=== PATIENT | female | born 1980 | race American Indian/Alaskan Native ===

== ENCOUNTER 2017-10-21 19:46 | Inpatient (IN) | payer SELFPAY ==
[2017-10-21] MEDS ORDERED: Nalbuphine 20 MG/1 ML Amp IVPUSH PRN (20:09)
[2017-10-21] MEDS ORDERED: Acetaminophen 325 MG Tab PO PRN (20:09)
[2017-10-21] MEDS ORDERED: Sodium Chloride 0.9% 10 ML Syringe FLUSH PRN (20:09)
[2017-10-21] MEDS ORDERED: Ondansetron 4 MG/2 ML SDV IVPUSH PRN ×2 (20:09→20:29)
[2017-10-21] MEDS ORDERED: Oxytocin/Lactated Ringers 10 UNIT/1,000 ML BAG IV SCH (20:15)
[2017-10-21] MEDS ORDERED: ePHEDrine 50 MG/ML SDV IVPUSH PRN (20:29)
[2017-10-21] MEDS ORDERED: fentaNYL 100 MCG/2 ML SDV EPIDUR PRN (20:29)
[2017-10-21] MEDS ORDERED: Bupivacaine/fentaNYL/NS 100 ML Bag EPIDUR SCH (20:30)
--- NOTE | 2017-10-21 20:45 | PCM.PREANE ---
Preanesthetic Assessment - Anesthesia/Transfusion/Family Hx Anesthesia History: Prior Anesthesia Without Reaction Family History of Anesthesia Reaction: No Transfusion History: Prior Transfusion Without Reaction Intubation History: Unknown - Review of Systems General: No Symptoms Pulmonary: No Symptoms Cardiovascular: No Symptoms Gastrointestinal: No Symptoms Neurological: No Symptoms Other: Reports: None - Physical Assessment NPO Status Date: 10/21/17 NPO Status Time: 16:00 Pulse: 77 O2 Sat by Pulse Oximetry: 99 Respiratory Rate: 16 Blood Pressure: 138/62 Temperature: 36.9 C Height: 1.65 m Weight: 79.379 kg ASA Class: 2 Mental Status: Alert & Oriented x3 Airway Class: Mallampati = 2 Dentition: Reports: Normal Dentition, Caries Thyro-Mental Finger Breadths: 3 Mouth Opening Finger Breadths: 3 ROM/Head Extension: Full Lungs: Clear to Auscultation, Normal Respiratory Effort Cardiovascular: Regular Rate, Regular Rhythm, No Murmurs - Lab Values: Laboratory Last Values WBC 8.29 K/mm3 (3.98-10.04) 10/21/17 20:24 RBC 4.39 M/mm3 (3.98-5.22) 10/21/17 20:24 Hgb 11.5 gm/L (11.2-15.7) 10/21/17 20:24 Hct 35.8 % (34.1-44.9) 10/21/17 20:24 MCV 81.5 fl (79.4-94.8) 10/21/17 20:24 MCH 26.2 pg (25.6-32.2) 10/21/17 20:24 MCHC 32.1 g/dl (32.2-35.5) L 10/21/17 20:24 RDW Std Deviation 54.9 fL (36.4-46.3) H 10/21/17 20:24 Plt Count 226 K/mm3 (182-369) 10/21/17 20:24 MPV 11.1 fl (9.4-12.3) 10/21/17 20:24 Above labs reviewed and noted and within acceptable ranges to proceed with epidural. - Allergies Allergies/Adverse Reactions: Allergies Allergy/AdvReac Type Severity Reaction Status Date / Time No Known Allergies Allergy Verified 10/21/17 20:40 - Anesthesia Plan Pre-Op Medication Ordered: None - Acknowledgements Anesthesia Type Planned: Epidural Pt an Appropriate Candidate for the Planned Anesthesia: Yes Alternatives and Risks of Anesthesia Discussed w Pt/Guardian: Yes Pt/Guardian Understands and Agrees with Anesthesia Plan: Yes PreAnesthesia Questionnaire - CURRENT (IN HOUSE) MEDS Current Meds: Current Medications Acetaminophen (Tylenol) 650 mg PO Q6H PRN PRN Reason: Pain (Mild 1-3) and fever Ephedrine Sulfate (Ephedrine Sulfate) 5 mg IVPUSH ASDIRECTED PRN PRN Reason: Hypotension Fentanyl (Sublimaze) 100 mcg EPIDUR Q3H PRN PRN Reason: Pain Fentanyl/Bupivacaine HCl (Fentanyl/Bupivacaine/Ns 2 Mcg-0.125% 100 Ml) 100 ml EPIDUR ASDIRECTED [facility] Lactated Ringer's (Ringers, Lactated) 1,000 mls @ 100 mls/hr IV ASDIRECTED [facility] Oxytocin/Lactated Ringer's (Pitocin In Lr 10 Units/1,000 Ml) 10 unit in 1,000 mls @ 100 mls/hr IV .CONTINUOUS [facility] Nalbuphine HCl (Nubain) 10 mg IVPUSH Q2H PRN PRN Reason: Pain (moderate 4-6) Ondansetron HCl (Zofran) 4 mg IVPUSH Q4H PRN PRN Reason: Nausea/Vomiting Ondansetron HCl (Zofran) 4 mg IVPUSH ONETIME PRN PRN Reason: Nausea/Vomiting Sodium Chloride (Saline Flush) 10 ml FLUSH ASDIRECTED PRN PRN Reason: Keep Vein Open
[2017-10-21] MEDS: Lactated Ringers 1,000 ML IV SCH ×3 (21:26→22:01)
--- NOTE | 2017-10-21 21:44 | PCM.LDHP ---
L&D History of Present Illness - General Date of Service: 10/21/17 Admit Problem/Dx: Patient Status Order with Admit Dx/Problem 10/21/17 20:09 Patient Status [ADT] Routine Admission Diagnosis/Problem Admission Diagnosis/Problem Spontaneous rupture of amniotic membranes Source of Information: Patient, Family () History Limitations: Reports: Language Barrier (Speaks Polish only, speaks some Polish) - History of Present Illness Introduction:: 37 year old at 38 weeks 4 days by LMP consistent with 19 week ultrasound. She reports that her water broke at approximately 7 PM. Reports that she had clear fluid with her water breaking. She reports that when she arrived to the hospital she started to have more frequent contractions are about every 10 minutes apart. Since that time they have gotten closer together to every 2-3 minutes. They were extremely painful and she was rating them at 6/ 10. She reports good movement. Timing/Duration: Reports: sudden onset, waxing/waning Location, : Reports: Abdomen, Lower back, Pelvic Quality: Reports: Pressure, Throbbing Severity: Moderate Pain Score: 6 Improves with: Reports: None Worsens with: Reports: None Associated Symptoms: Reports: vaginal fluid (Clear), moderate amount. Denies: vaginal bleeding, vaginal discharge Present Illness Comments:: Aury Jones is a 37-year-old 003 at 38 weeks 4 days by LMP consistent with 19 week ultrasound. She has had somewhat limited care with Dr. Pena having not been seen from 20 weeks gestational age until 34 weeks gestational age [place]. She was not seeing any other providers during that time. Her labs show O- blood type with negative antibody screen. She received RhoGAM on 09/20/2017. Her hematocrit was 39.9 and hemoglobin of 13.3 on 04/09/2017. Her platelets were 231 at that time. She is rubella nonimmune. She had a negative hepatitis B surface antigen, negative RPR and negative HIV. She had negative chlamydia and gonorrhea screening. She had a normal Pap smear with negative culture testing. Her heart rate screening was within normal limits. Her 1 hour glucose test was elevated at 157. Her 3 hour glucose test showed values of fasting 88, 1 hour 189, two-hour 141 and 3 hour 124. She is GBS negative. Her has been complicated by history of macrosomia, clavicular fracture will in the setting of shoulder dystocia of a 10 pound baby, Rh- blood status with receiving RhoGAM at 34 weeks, advanced maternal age with normal harmony screen and rubella nonimmune - Related Data Allergies/Adverse Reactions: Allergies Allergy/AdvReac Type Severity Reaction Status Date / Time No Known Allergies Allergy Verified 10/21/17 20:40 Past Medical History : 4 Para: 3 Social & Family History - Tobacco Use Smoking Status *Q: Never Smoker Tobacco Use Within Last Twelve Months: No - Alcohol Use Alcohol Use History: No - Recreational Drug Use Recreational Drug Use: No Drug Use in Last 12 Months: No - Sexual History Sexual History: Reports: Single Partner - Living Situation & Occupation Living situation: Reports: H&P Review of Systems - Review of Systems: Review Of Systems: See Below General: Denies: Fever, Chills, Malaise HEENT: Denies: Sinus Congestion, Sore Throat, Visual Changes Pulmonary: Denies: Shortness of Breath, Wheezing Cardiovascular: Denies: Chest Pain, Palpitations Gastrointestinal: Denies: Abdominal Pain, Constipation, Diarrhea, Nausea, Vomiting Genitourinary: Denies: Dysuria, Frequency, Burning, Pain Musculoskeletal: Reports: Back Pain Psychiatric: Denies: Depression, Anxiety Neurological: Reports: Headache (Menstrual migraines) Hematologic/Lymphatic: Denies: Anemia L&D Exam - Exam Exam: See Below - Vital Signs Vital Signs: Last Vital Signs Temp 36.9 C 10/21/17 20:50 Pulse 77 10/21/17 20:50 Resp 16 10/21/17 20:50 BP 138/62 10/21/17 20:50 Pulse Ox 99 10/21/17 20:50 Weight: 79.379 kg - OB Specific Contraction Duration (sec): 60 Contraction Frequency (min): 2-3 Contraction Intensity: Moderate to Strong Movement: Active Heart Tones: Present Heart Tones per Min: 130 (no accelerations, variable decelerations with contractions) Heart Rate (FHR) Variability: Moderate (6-25 bmp) Presentation: Vertex (By vaginal exam) - Cruz Score Cruz Score Cervix Position: Anterior Cruz Score Consistency: Soft Cruz Score Effacement: >80% Cruz Score Dilation: > 5 cm Cruz Score 's Station: -2 Cruz Score Total: 11 - Exam Quality Assessment: Other (Epidural in place) General: Alert, Oriented HEENT: Conjunctiva Clear, EOMI Neck: Supple, Trachea Midline Lungs: Clear to Auscultation, Normal Respiratory Effort Cardiovascular: Regular Rate, Regular Rhythm GI/Abdominal Exam: Soft, Non-Tender, Other (Gravid). No: Guarding, Rebound Genitourinary: Normal external exam Back Exam: Normal Inspection Extremities: Normal Inspection, No Pedal Edema Skin: Warm, Dry, Intact Psychiatric: Alert, Normal Affect, Normal Mood - Patient Data Lab Results Last 24 hrs: Laboratory Results - last 24 hr 10/21/17 Range/Units 20:24 WBC 8.29 (3.98-10.04) K/mm3 RBC 4.39 (3.98-5.22) M/mm3 Hgb 11.5 (11.2-15.7) gm/L Hct 35.8 (34.1-44.9) % MCV 81.5 (79.4-94.8) fl MCH 26.2 (25.6-32.2) pg MCHC 32.1 L (32.2-35.5) g/dl RDW Std Deviation 54.9 H (36.4-46.3) fL Plt Count 226 (182-369) K/mm3 MPV 11.1 (9.4-12.3) fl Result Diagrams: 10/21/17 20:24 - Problem List (1) 38 weeks gestation of SNOMED Code(s): 36591496 ICD Code: Z3A.38 - 38 WEEKS GESTATION OF Status: Acute Current Visit: Yes (2) History of macrosomia in in prior , currently SNOMED Code(s): 437476922 ICD Code: O09.299 - SUPRVSN OF PREG W POOR REPRODCTV OR OBSTET HISTORY, UNSP TRI Status: Acute Current Visit: Yes (3) Language barrier SNOMED Code(s): 109241599 ICD Code: Z78.9 - OTHER SPECIFIED HEALTH STATUS Status: Acute Current Visit: Yes (4) Rubella non-immune status, antepartum SNOMED Code(s): 669618747 ICD Code: O99.89 - OTH DISEASES AND CONDITIONS COMPL PREG/CHLDBRTH; Z28.3 - UNDERIMMUNIZATION STATUS Status: Acute Current Visit: Yes (5) Advanced maternal age (AMA) in SNOMED Code(s): 346349603 ICD Code: [id number] - Status: Acute Current Visit: Yes Problem List Initiated/Reviewed/Updated: Yes Orders Last 24hrs: Active Orders 24 hr Category Date Time Status Patient Status [ADT] Routine ADT 10/21/17 20:09 Active Activity as Tolerated [RC] PFP Care 10/21/17 20:09 Active Communication Order [RC] ASDIRECTED Care 10/21/17 20:09 Active Heart Tones [RC] ASDIRECTED Care 10/21/17 20:10 Active Notify Provider Vital Signs [RC] PRN Care 10/21/17 20:11 Active Notify Provider [RC] ASDIRECTED Care 10/21/17 20:29 Active Notify Provider [RC] PFP Care 10/21/17 20:09 Active Notify Provider [RC] PRN Care 10/21/17 20:09 Active Oxygen Therapy [RC] ASDIRECTED Care 10/21/17 20:29 Active Peripheral IV Care [RC] . DIRECTED Care 10/21/17 20:10 Active Pulse Oximetry [RC] ASDIRECTED Care 10/21/17 20:29 Active Pump Management, Intrathecal [RC] ASDIRECTED Care 10/21/17 20:11 Active Urinary Catheter Assessment [RC] ASDIRECTED Care 10/21/17 20:09 Active Vital Signs [RC] PER UNIT ROUTINE Care 10/21/17 20:09 Active Regular Diet [DIET] Diet 10/21/17 Dinner Active Acetaminophen [Tylenol] Med 10/21/17 20:09 Active 650 mg PO Q6H PRN Bupivacaine/fentaNYL/NS [fentaNYL/Bupivacaine/NS 2 MCG- Med 10/21/17 20:30 Active 0.125% 100 ML] 100 ml EPIDUR ASDIRECTED Lactated Ringers [Ringers, Lactated] 1,000 ml Med 10/21/17 20:15 Active IV ASDIRECTED Nalbuphine [Nubain] Med 10/21/17 20:09 Active 10 mg IVPUSH Q2H PRN Ondansetron [Zofran] Med 10/21/17 20:29 Active 4 mg IVPUSH ONETIME PRN Ondansetron [Zofran] Med 10/21/17 20:09 Active 4 mg IVPUSH Q4H PRN Oxytocin/Lactated Ringers [Pitocin in LR 10 Units/1,000 Med 10/21/17 20:15 Active ML] 10 unit in 1,000 ml IV .CONTINUOUS Sodium Chloride 0.9% [Saline Flush] Med 10/21/17 20:09 Active 10 ml FLUSH ASDIRECTED PRN ePHEDrine [ePHEDrine Sulfate] Med 10/21/17 20:29 Active 5 mg IVPUSH ASDIRECTED PRN fentaNYL [Sublimaze] Med 10/21/17 20:29 Active 100 mcg EPIDUR Q3H PRN Electronic Heart Tones Ext w TOCO [WOMSER] Oth 10/21/17 20:09 Ordered Routine Electronic Heart Tones Internal [WOMSER] Per Unit Ot 10/21/17 20:09 Ordered Routine Peripheral IV Insertion Adult [OM.PC] Routine Ot 10/21/17 20:09 Ordered Resuscitation Status Routine Resus Stat 10/21/17 20:09 Ordered Medication Orders Acetaminophen (Tylenol) 650 mg PO Q6H PRN PRN Reason: Pain (Mild 1-3) and fever Ephedrine Sulfate (Ephedrine Sulfate) 5 mg IVPUSH ASDIRECTED PRN PRN Reason: Hypotension Fentanyl (Sublimaze) 100 mcg EPIDUR Q3H PRN PRN Reason: Pain Last Admin: 10/21/17 20:51 Dose: 100 mcg Fentanyl/Bupivacaine HCl (Fentanyl/Bupivacaine/Ns 2 Mcg-0.125% 100 Ml) 100 ml EPIDUR ASDIRECTED [facility] Last Admin: 10/21/17 20:51 Dose: 100 ml Lactated Ringer's (Ringers, Lactated) 1,000 mls @ 100 mls/hr IV ASDIRECTED [facility] Last Admin: 10/21/17 21:27 Dose: 100 mls/hr Infusion: 10/21/17 21:27 Dose: 100 mls/hr Admin: 10/21/17 21:26 Dose: 100 mls/hr Oxytocin/Lactated Ringer's (Pitocin In Lr 10 Units/1,000 Ml) 10 unit in 1,000 mls @ 100 mls/hr IV .CONTINUOUS [facility] Nalbuphine HCl (Nubain) 10 mg IVPUSH Q2H PRN PRN Reason: Pain (moderate 4-6) Ondansetron HCl (Zofran) 4 mg IVPUSH Q4H PRN PRN Reason: Nausea/Vomiting Ondansetron HCl (Zofran) 4 mg IVPUSH ONETIME PRN PRN Reason: Nausea/Vomiting Sodium Chloride (Saline Flush) 10 ml FLUSH ASDIRECTED PRN PRN Reason: Keep Vein Open Assessment/Plan Comment:: Refer to observation for active labor with spontaneous rupture membranes Continuous monitoring Place IV and have Lactated Ringer's at 125 ml/hr May have light regular diet Activity as tolerated Epidural placed for anesthesia Plans to breast and bottle feed after delivery Plan to administer MMR after delivery due to rubella nonimmune status Will check for possible need for RhoGAM after delivery due to maternal Rh- status Anticipate vaginal delivery unless otherwise indicated
[2017-10-22] MEDS: Lactated Ringers 1,000 ML IV SCH ×2 (01:10→11:03)
[2017-10-22] MEDS ORDERED: Bupivacaine 0.25% 10 ML SDV ONE (02:00)
[2017-10-22] MEDS ORDERED: Oxytocin/Lactated Ringers 10 UNIT/1,000 ML BAG IV SCH ×2 (02:00→05:51)
--- NOTE | 2017-10-22 05:34 | PCM.DEL ---
L & D Note - General Info Date of Service: 10/22/17 Mother's Due Date: 10/31/17 - Delivery Note Labor: Spontaneous, Augmented by Oxytocin Delivery Outcome: Livebirth Infant Delivery Method: Spontaneous Vaginal Delivery-Single Presentation: Right Occiput Anterior (WESLEY) (By vaginal exam) Nuchal Cord: Present, Reduced Anesthesia Type: Epidural Amniotic Fluid Description: Clear Episiotomy Type: None Laceration: 1st Degree (Not repaired, hemostatic), Perineal Placenta: Intact, Spontaneous Cord: 3 Vessels Estimated Blood Loss: 350 Resuscitation Needed: No : Bulb Syringe, Stimulated, [place] Used Provider: Ju Pena Score 1 min: 8 Score 5 min: 9 Second Stage Interventions: Reports: Pushing Effectively, Pushing, Knee Chest Position Delivery Comments (Free Text/Narrative):: Stage I: Aury Jones was admitted for spontaneous labor with spontaneous rupture of membranes with clear fluid. On admission her cervix was dilated to 1 cm. She was GBS negative. She was given an epidural for anesthesia. She progressed quickly from 1-7 cm and then slowly progressed from 7-9 cm. After several hours she was rechecked and found to be continuing at 9 cm and was started on Pitocin for augmentation. She progressed to complete and pushing. Stage II: On 10/22/2017 she had a normal vaginal delivery of a live male at 0506. Apgars of 8 & 9. Weight of 3660 g. There was a single nuchal cord that was reduced prior to delivery. Infant was delivered in WESLEY position. The cord was doubly clamped and cut by myself. Infant was placed on mother's abdomen. Stage III: She had a spontaneous delivery of an intact placenta in [place] presentation. Three vessel cord. She was given pitocin and fundal massage. She had a small first-degree perineal laceration in the midline that was hemostatic and not repaired. Mom and baby were stable to recovery. EBL of 350 mL. Александр Hanley MD 5:33 AM 10/22/2017 - Patient Data Vitals - Most Recent: Last Vital Signs Temp 36.9 C 10/21/17 20:50 Pulse 77 10/21/17 20:50 Resp 16 10/21/17 20:50 BP 138/62 10/21/17 20:50 Pulse Ox 99 10/21/17 20:50 Weight - Most Recent: 79.379 kg Lab Results Last 24 Hours: Laboratory Results - last 24 hr 10/21/17 Range/Units 20:24 WBC 8.29 (3.98-10.04) K/mm3 RBC 4.39 (3.98-5.22) M/mm3 Hgb 11.5 (11.2-15.7) gm/L Hct 35.8 (34.1-44.9) % MCV 81.5 (79.4-94.8) fl MCH 26.2 (25.6-32.2) pg MCHC 32.1 L (32.2-35.5) g/dl RDW Std Deviation 54.9 H (36.4-46.3) fL Plt Count 226 (182-369) K/mm3 MPV 11.1 (9.4-12.3) fl Med Orders - Current: Current Medications Acetaminophen (Tylenol) 650 mg PO Q6H PRN PRN Reason: Pain (Mild 1-3) and fever Ephedrine Sulfate (Ephedrine Sulfate) 5 mg IVPUSH ASDIRECTED PRN PRN Reason: Hypotension Fentanyl (Sublimaze) 100 mcg EPIDUR Q3H PRN PRN Reason: Pain Last Admin: 10/21/17 20:51 Dose: 100 mcg Fentanyl/Bupivacaine HCl (Fentanyl/Bupivacaine/Ns 2 Mcg-0.125% 100 Ml) 100 ml EPIDUR ASDIRECTED [facility] Last Admin: 10/21/17 20:51 Dose: 100 ml Lactated Ringer's (Ringers, Lactated) 1,000 mls @ 100 mls/hr IV ASDIRECTED [facility] Last Admin: 10/22/17 01:10 Dose: 100 mls/hr Oxytocin/Lactated Ringer's (Pitocin In Lr 10 Units/1,000 Ml) 10 unit in 1,000 mls @ 100 mls/hr IV .CONTINUOUS [facility] Oxytocin/Lactated Ringer's (Pitocin In Lr 10 Units/1,000 Ml) 10 unit in 1,000 mls @ 12 mls/hr IV TITRATE MAMI; 2 MUNITS/MIN PRN Reason: Protocol Last Titration: 10/22/17 02:32 Dose: 5 munits/min, 30 mls/hr Nalbuphine HCl (Nubain) 10 mg IVPUSH Q2H PRN PRN Reason: Pain (moderate 4-6) Ondansetron HCl (Zofran) 4 mg IVPUSH Q4H PRN PRN Reason: Nausea/Vomiting Ondansetron HCl (Zofran) 4 mg IVPUSH ONETIME PRN PRN Reason: Nausea/Vomiting Sodium Chloride (Saline Flush) 10 ml FLUSH ASDIRECTED PRN PRN Reason: Keep Vein Open - Problem List & Annotations (1) 38 weeks gestation of SNOMED Code(s): 19342201 Code(s): Z3A.38 - 38 WEEKS GESTATION OF Status: Acute Current Visit: Yes (2) History of macrosomia in in prior , currently SNOMED Code(s): 797500125 Code(s): O09.299 - SUPRVSN OF PREG W POOR REPRODCTV OR OBSTET HISTORY, UNSP TRI Status: Acute Current Visit: Yes (3) Language barrier SNOMED Code(s): 176853695 Code(s): Z78.9 - OTHER SPECIFIED HEALTH STATUS Status: Acute Current Visit: Yes (4) Rubella non-immune status, antepartum SNOMED Code(s): 684992049 Code(s): O99.89 - OTH DISEASES AND CONDITIONS COMPL PREG/CHLDBRTH; Z28.3 - UNDERIMMUNIZATION STATUS Status: Acute Current Visit: Yes (5) Advanced maternal age (AMA) in SNOMED Code(s): 490447725 Code(s): RDA9070 - Status: Acute Current Visit: Yes (6) Vaginal delivery SNOMED Code(s): 989936474 Code(s): O80 - ENCOUNTER FOR FULL-TERM UNCOMPLICATED DELIVERY Status: Acute Current Visit: Yes (7) First degree laceration of perineum during delivery, SNOMED Code(s): 471579942 Code(s): O70.0 - FIRST DEGREE PERINEAL LACERATION DURING DELIVERY Status: Acute Current Visit: Yes - Problem List Review Problem List Initiated/Reviewed/Updated: Yes - My Orders Last 24 Hours: My Active Orders 10/21/17 20:09 Patient Status [ADT] Routine Activity as Tolerated [RC] PFP Communication Order [RC] ASDIRECTED Notify Provider [RC] PFP Notify Provider [RC] PRN Urinary Catheter Assessment [RC] ASDIRECTED Vital Signs [RC] PER UNIT ROUTINE Acetaminophen [Tylenol] 650 mg PO Q6H PRN Nalbuphine [Nubain] 10 mg IVPUSH Q2H PRN Ondansetron [Zofran] 4 mg IVPUSH Q4H PRN Sodium Chloride 0.9% [Saline Flush] 10 ml FLUSH ASDIRECTED PRN Electronic Heart Tones Ext w TOCO [WOMSER] Routine Electronic Heart Tones Internal [WOMSER] Per Unit Routine Peripheral IV Insertion Adult [OM.PC] Routine Resuscitation Status Routine 10/21/17 20:10 Peripheral IV Care [RC] . DIRECTED 10/21/17 20:11 Notify Provider Vital Signs [RC] PRN Pump Management, Intrathecal [RC] ASDIRECTED 10/21/17 20:15 Lactated Ringers [Ringers, Lactated] 1,000 ml IV ASDIRECTED Oxytocin/Lactated Ringers [Pitocin in LR 10 Units/1,000 ML] 10 unit in 1,000 ml IV .CONTINUOUS 10/21/17 Dinner Regular Diet [DIET] 10/22/17 02:00 Oxytocin/Lactated Ringers [Pitocin in LR 10 Units/1,000 ML] 10 unit in 1,000 ml IV TITRATE 10/22/17 05:25 Patient Status Manage Transfer [TRANSFER] Routine - Plan Plan:: Admit to inpatient following spontaneous vaginal delivery Continue Pitocin and lactated Ringer's per protocol Routine vitals Plans to breast and bottle feed after delivery Plan to administer MMR after delivery due to rubella nonimmune status Will check for possible need for RhoGAM due to maternal Rh- status Anticipate discharge on day #1
[2017-10-22] MEDS ORDERED: Benzocaine/Menthol 20%-0.5% Spray 56 GM Canister TOP PRN (05:51)
[2017-10-22] MEDS ORDERED: Measles, Mumps & Rubella Vaccine 0.5 ML SDV SUBCUT ONE (05:51)
[2017-10-22] MEDS ORDERED: Lanolin 100% Cream 7 GM Tube TOP PRN (05:51)
[2017-10-22] MEDS ORDERED: Ibuprofen 600 MG Tab PO PRN (05:51)
[2017-10-22] MEDS ORDERED: Witch Hazel Medicated Pads 100/Jar TOP PRN (05:51)
[2017-10-22] MEDS ORDERED: Docusate Sodium 100 MG Cap PO PRN (05:51)
[2017-10-22] MEDS ORDERED: Acetaminophen 325 MG Tab PO PRN (05:51)
[2017-10-22] MEDS ORDERED: Hydrocortisone Acetate 25 MG Supp RECTAL PRN (05:51)
--- NOTE | 2017-10-22 10:59 | PCM48HPAN ---
Post Anesthesia Note - EVALUATION WITHIN 48HRS OF ANESTHETIC Vital Signs in Normal Range: Yes Patient Participated in Evaluation: Yes Respiratory Function Stable: Yes Airway Patent: Yes Cardiovascular Function Stable: Yes Hydration Status Stable: Yes Pain Control Satisfactory: Yes Nausea and Vomiting Control Satisfactory: Yes Mental Status Recovered: Yes Pulse Rate: 77 Resp Rate: 16 Temperature: 36.9 C Blood Pressure: 138/62 - COMMENTS/OBSERVATIONS Free Text/Narrative:: no anesthesia complications
--- NOTE | 2017-10-22 11:08 | PCM.SN ---
- Free Text/Narrative Note: S: Called by Nurse who reported that patient had hemorrhage with passage of large amount of blood with blood clots at around 10 AM. Noted increased amount of pain and patient appeared clammy. Nurse reports that uterus was 3 finger breadths above the umbilicus. O: Gen: Minimal distress, alert and oriented Lungs: Unlabored breathing Abdomen: Soft, minimal tenderness, fundus at the umbilicus Pelvis: Cervix with minimal dilation, small amount of bleeding with small clots removed from uterus Bedside U/S Endometrial stripe: Homogeneous appearing with thickness 2.06-2.25 cm A/P 37 year old s/p , PPD #0 with delayed PP hemorrhage * Endometrial stripe at upper limit of normal and with minimal bleeding at this time. Will give second bag of 10 U of pitocin following usual administration protocol. Will also give cytotec 800 mcg PO x 1 dose. * Will check CBC and get Type and screen at 1400 on 10/22/17. * Patient with O negative blood type, fetus with O positive blood type. Patient to receive Rhogam. * Continue to closely monitor vitals * Recommend for regular voiding while IV fluids are running * Plan to monitor patient closely for additional signs of hemorrhage Александр Hanley MD 11:15 AM 10/22/17
[2017-10-22] MEDS: Prenatal Multivitamin with Calcium/Folic Acid/Iron Tab PO SCH (11:14)
[2017-10-22] MEDS: Misoprostol 200 MCG Tab PO ONE ×3 (11:15→13:28)
--- NOTE | 2017-10-23 08:59 | PCM.SN ---
- Free Text/Narrative Note: Post Progress Note PPD # 1 Subjective: Doing well overall. Ambulating without difficulty. Lochia at this time, patient had delayed hemorrhage with large amount of blood clots yesterday morning. Voiding without difficulty. Tolerating regular diet without nausea or vomiting. Pain controlled with oral medications. Breast and bottle feeding with minimal difficulty. Objective: Vitals: Vital Signs - 24 hr 10/22/17 10/22/17 10/22/17 10:00 10:59 16:12 Temperature 36.9 C 37.2 C Temperature [ 36.8 C Temporal] Pulse, 77 84 Peripheral Pulse, 88 Peripheral [ Brachial] Respiratory 16 16 14 Rate Blood Pressure 138/62 131/81 Blood Pressure 120/74 [Upper Arm] O2 Sat by Pulse 98 Oximetry 10/22/17 10/22/17 19:57 22:56 Temperature 37.6 C 36.8 C Temperature [ Temporal] Pulse, 91 84 Peripheral Pulse, Peripheral [ Brachial] Respiratory 20 18 Rate Blood Pressure 123/70 128/82 Blood Pressure [Upper Arm] O2 Sat by Pulse 99 99 Oximetry Physical Exam General: Alert and oriented, no acute distress Lungs: Clear to auscultation bilaterally Heart: Regular rate and rhythm Abdomen: Soft, minimal appropriate tenderness, non-distended, fundus midline, nontender, and below the umbilicus Extremities: No edema Laboratory Tests 10/21/17 10/22/17 10/22/17 Range/Units 20:24 14:10 14:10 WBC 8.29 14.96 H (3.98-10.04) K/mm3 RBC 4.39 3.98 (3.98-5.22) M/mm3 Hgb 11.5 10.4 L (11.2-15.7) gm/L Hct 35.8 32.7 L (34.1-44.9) % MCV 81.5 82.2 (79.4-94.8) fl MCH 26.2 26.1 (25.6-32.2) pg MCHC 32.1 L 31.8 L (32.2-35.5) g/dl RDW Std Deviation 54.9 H 57.1 H (36.4-46.3) fL Plt Count 226 182 (182-369) K/mm3 MPV 11.1 10.8 (9.4-12.3) fl Neut % (Auto) 77.9 H (34.0-71.1) % Lymph % (Auto) 13.9 L (19.3-51.7) % [place] % (Auto) 7.4 (4.7-12.5) % Eos % (Auto) 0.2 L (0.7-5.8) Baso % (Auto) 0.1 (0.1-1.2) % Neut # (Auto) 11.65 H (1.56-6.13) K/mm3 Lymph # (Auto) 2.08 (1.18-3.74) K/mm3 [place] # (Auto) 1.11 H (0.24-0.36) K/mm3 Eos # (Auto) 0.03 L (0.04-0.36) K/mm3 Baso # (Auto) 0.02 (0.01-0.08) K/mm3 Blood Type O NEGATIVE Gel Antibody Screen Negative Screen 0 ros/5 flds - neg RhIG Candidate? Yes Rhogam Indicated Yes, baby rh pos H ASSESSMENT: 37-year-old female G 4 P 4004 s/p normal vaginal delivery PPD #1, complicated by delayed hemorrhage on day #0 with passage of large clots, hemoglobin of 10.4 on recheck, andhistory of macrosomia, clavicular fracture will in the setting of shoulder dystocia of a 10 pound baby, Rh- blood status with receiving RhoGAM at 34 weeks, advanced maternal age with normal harmony screen and rubella nonimmune patient unable to receive MMR vaccine due to receiving RhoGAM PLAN: Doing well Breast and bottle feeding with minimal difficulty. Assist as needed Lochia minimal. Continue to monitor for appropriate lochia. Continue routine care Maternal blood type O-, blood type O+, status post RhoGAM on 10/22/2017 Patient unable to receive MMR vaccine due to receiving RhoGAM Anticipate discharge home today Александр Hanley MD 8:59 AM 10/23/2017
--- NOTE | 2017-10-23 09:20 | PCM.DCSUM1 ---
Discharge Summary - Hospital Course Free Text/Narrative:: Stage I: Aury Jones was admitted for spontaneous labor with spontaneous rupture of membranes with clear fluid. On admission her cervix was dilated to 1 cm. She was GBS negative. She was given an epidural for anesthesia. She progressed quickly from 1-7 cm and then slowly progressed from 7-9 cm. After several hours she was rechecked and found to be continuing at 9 cm and was started on Pitocin for augmentation. She progressed to complete and pushing. Stage II: On 10/22/2017 she had a normal vaginal delivery of a live male infant at 0506. Apgars of 8 & 9. Weight of 3660 g. There was a single nuchal cord that was reduced prior to delivery. Infant was delivered in WESLEY position. The cord was doubly clamped and cut by myself. Infant was placed on mother's abdomen. Stage III: She had a spontaneous delivery of an intact placenta in [place] presentation. Three vessel cord. She was given pitocin and fundal massage. She had a small first-degree perineal laceration in the midline that was hemostatic and not repaired. Mom and baby were stable to recovery. EBL of 350 mL. HPI Initial Comments: Stage I: Aury Jones was admitted for spontaneous labor with spontaneous rupture of membranes with clear fluid. On admission her cervix was dilated to 1 cm. She was GBS negative. She was given an epidural for anesthesia. She progressed quickly from 1-7 cm and then slowly progressed from 7-9 cm. After several hours she was rechecked and found to be continuing at 9 cm and was started on Pitocin for augmentation. She progressed to complete and pushing. Stage II: On 10/22/2017 she had a normal vaginal delivery of a live male infant at 0506. Apgars of 8 & 9. Weight of 3660 g. There was a single nuchal cord that was reduced prior to delivery. Infant was delivered in WESLEY position. The cord was doubly clamped and cut by myself. Infant was placed on mother's abdomen. Stage III: She had a spontaneous delivery of an intact placenta in [place] presentation. Three vessel cord. She was given pitocin and fundal massage. She had a small first-degree perineal laceration in the midline that was hemostatic and not repaired. Mom and baby were stable to recovery. EBL of 350 mL. Brief History: Stage I: Aury Jones was admitted for spontaneous labor with spontaneous rupture of membranes with clear fluid. On admission her cervix was dilated to 1 cm. She was GBS negative. She was given an epidural for anesthesia. She progressed quickly from 1-7 cm and then slowly progressed from 7-9 cm. After several hours she was rechecked and found to be continuing at 9 cm and was started on Pitocin for augmentation. She progressed to complete and pushing. Stage II: On 10/22/2017 she had a normal vaginal delivery of a live male at 0506. Apgars of 8 & 9. Weight of 3660 g. There was a single nuchal cord that was reduced prior to delivery. was delivered in WESLEY position. The cord was doubly clamped and cut by myself. Infant was placed on mother's abdomen. Stage III: She had a spontaneous delivery of an intact placenta in [place] presentation. Three vessel cord. She was given pitocin and fundal massage. She had a small first-degree perineal laceration in the midline that was hemostatic and not repaired. Mom and baby were stable to recovery. EBL of 350 mL. - Discharge Data Discharge Date: 10/23/17 Discharge Disposition: Home, Self-Care 01 Condition: Good - Discharge Diagnosis/Problem(s) (1) 38 weeks gestation of SNOMED Code(s): 39496821 ICD Code: Z3A.38 - 38 WEEKS GESTATION OF Status: Acute Current Visit: Yes (2) History of macrosomia in in prior , currently SNOMED Code(s): 696172504 ICD Code: O09.299 - SUPRVSN OF PREG W POOR REPRODCTV OR OBSTET HISTORY, UNSP TRI Status: Acute Current Visit: Yes (3) Language barrier SNOMED Code(s): 013084108 ICD Code: Z78.9 - OTHER SPECIFIED HEALTH STATUS Status: Acute Current Visit: Yes (4) Rubella non-immune status, antepartum SNOMED Code(s): 437091852 ICD Code: O99.89 - OTH DISEASES AND CONDITIONS COMPL PREG/CHLDBRTH; Z28.3 - UNDERIMMUNIZATION STATUS Status: Acute Current Visit: Yes (5) Advanced maternal age (AMA) in SNOMED Code(s): 368183964 ICD Code: [id number] - Status: Acute Current Visit: Yes (6) Vaginal delivery SNOMED Code(s): 124931263 ICD Code: O80 - ENCOUNTER FOR FULL-TERM UNCOMPLICATED DELIVERY Status: Acute Current Visit: Yes (7) First degree laceration of perineum during delivery, SNOMED Code(s): 833138348 ICD Code: O70.0 - FIRST DEGREE PERINEAL LACERATION DURING DELIVERY Status: Acute Current Visit: Yes - Patient Summary/Data Complications: Delayed hemorrhage Consults: None Hospital Course: Aury Jones was admitted for spontaneous labor with spontaneous rupture membranes with clear fluid. On admission her cervix was dilated to 1 cm. She was GBS negative. She was given pitocin for augmentation after she got to 9 cm without augmentation. She was given an epidural for anesthesia. She had spontaneous rupture of membranes with clear fluid prior to arrival and remained clear throughout the labor. She progressed to complete and began pushing. On she had a normal vaginal delivery of a live male infant at 0506. Apgars of 8 & 9. Weight of 3660 g. Her course was complicated by delayed hemorrhage on day #0 with passage of large clots. A bedside ultrasound was performed and showed the endometrial stripe was at the upper limits of normal measuring 2.0-2.2 cm. She was given an additional dose of Pitocin through the IV and this was able to control her bleeding. Her pain was well controlled and she had minimal lochia. She was ambulating, tolerating a regular diet and voiding normally. She was breast and bottle feeding. She was afebrile and her hematocrit was 32.7 on day #0 at approximately 2 PM after her hemorrhage. She desired to be discharged home on the morning of PPD #1. Her blood type is O- and baby's blood type was O+. She received dose of RhoGAM prior to discharge. Patient is rubella nonimmune but due to receiving RhoGAM was not given MMR vaccine. - Patient Instructions Diet: Regular Diet as Tolerated Activity: As Tolerated Activity, Other: Nothing in the vagina for 6 weeks. Driving: May Drive Today Showering/Bathing: May Shower Notify Provider of: Fever, Increased Pain, Swelling and Redness, Drainage, Nausea and/or Vomiting Other/Special Instructions: Call the office of Dr. Pena if you have heavy vaginal bleeding enough to soak a pad in less than an hour for 3-4 hours. Llamar la officina de Dr. Pena si campbell tiene mucho sangrado de la vagina por 3- 4 horas. - Discharge Plan Home Medications: Home Meds Acetaminophen [Tylenol] 650 mg PO Q6H PRN tablet 10/23/17 [Rx] Benzocaine/Menthol [Dermoplast Pain Relief Molt] 1 spray TOP ASDIRECTED PRN canister 10/23/17 [Rx] Docusate Sodium [Colace] 100 mg PO BID PRN cap 10/23/17 [Rx] Hydrocortisone Acetate [Anucort-HC] 25 mg RECTAL BID PRN supp 10/23/17 [Rx] Ibuprofen [IJD: Ibuprofen] 600 mg PO Q6H PRN tablet 10/23/17 [Rx] Lanolin [Lansinoh HPA] 1 applic TOP ASDIRECTED PRN tube 10/23/17 [Rx] Vit with Ca/FA/Iron [ Plus Iron] 1 each PO DAILY tablet [Rx] Patient Handouts: Vaginal Delivery, Care of a Perineal Tear, Care After Vaginal Delivery Referrals: Ju Pena MD [Physician] - (Follow-up in 6 weeks or earlier as needed for visit. Regresar a la clinica con Dr. Ju Pena en 6 semanas o antes si es necessario por la estefania desques la parta.) - Discharge Summary/Plan Comment DC Time >30 min.: No - Patient Data Vitals - Most Recent: Last Vital Signs Temp 36.8 C 10/22/17 22:56 Pulse 84 10/22/17 22:56 Resp 18 10/22/17 22:56 BP 128/82 10/22/17 22:56 Pulse Ox 99 10/22/17 22:56 Weight - Most Recent: 79.379 kg I&O - Last 24 hours: Intake & Output 10/22/17 10/23/17 10/23/17 22:59 06:59 14:59 Intake Total 0 0 Balance 0 0 Lab Results - Last 24 hrs: Laboratory Results - last 24 hr 10/22/17 10/22/17 Range/Units 14:10 14:10 WBC 14.96 H (3.98-10.04) K/mm3 RBC 3.98 (3.98-5.22) M/mm3 Hgb 10.4 L (11.2-15.7) gm/L Hct 32.7 L (34.1-44.9) % MCV 82.2 (79.4-94.8) fl MCH 26.1 (25.6-32.2) pg MCHC 31.8 L (32.2-35.5) g/dl RDW Std Deviation 57.1 H (36.4-46.3) fL Plt Count 182 (182-369) K/mm3 MPV 10.8 (9.4-12.3) fl Neut % (Auto) 77.9 H (34.0-71.1) % Lymph % (Auto) 13.9 L (19.3-51.7) % [place] % (Auto) 7.4 (4.7-12.5) % Eos % (Auto) 0.2 L (0.7-5.8) Baso % (Auto) 0.1 (0.1-1.2) % Neut # (Auto) 11.65 H (1.56-6.13) K/mm3 Lymph # (Auto) 2.08 (1.18-3.74) K/mm3 [place] # (Auto) 1.11 H (0.24-0.36) K/mm3 Eos # (Auto) 0.03 L (0.04-0.36) K/mm3 Baso # (Auto) 0.02 (0.01-0.08) K/mm3 Blood Type O NEGATIVE Gel Antibody Screen Negative Screen 0 ros/5 flds - neg RhIG Candidate? Yes Rhogam Indicated Yes, baby rh pos H Med Orders - Current: Current Medications Acetaminophen (Tylenol) 650 mg PO Q6H PRN PRN Reason: mild pain or fever Benzocaine/Menthol (Dermoplast Pain Relief Molt) 0 gm TOP ASDIRECTED PRN PRN Reason: Perineal Comfort Measure Last Admin: 10/22/17 06:31 Dose: 1 canister Docusate Sodium (Colace) 100 mg PO BID PRN PRN Reason: Constipation Emollient Ointment (Lansinoh Hpa) 0 gm TOP ASDIRECTED PRN PRN Reason: Sore Nipples Hydrocortisone Acetate (Anucort-Hc) 25 mg RECTAL BID PRN PRN Reason: Hemorrhoid pain Oxytocin/Lactated Ringer's (Pitocin In Lr 10 Units/1,000 Ml) 10 unit in 1,000 mls @ 100 mls/hr IV TITRATE MAMI; Protocol Stop: 10/23/17 15:50 Ibuprofen (Motrin) 600 mg PO Q6H PRN PRN Reason: Mild pain or fever Last Admin: 10/22/17 06:29 Dose: 600 mg Prenat Multivit/[place]/Iron/Folic Ac ( Plus Iron) 1 each PO DAILY MAMI Last Admin: 10/22/17 11:14 Dose: 1 each Witch Penny (Tucks) 1 pad TOP ASDIRECTED PRN PRN Reason: Hemorrhoid pain Last Admin: 10/22/17 06:31 Dose: 1 tub Discontinued Medications Acetaminophen (Tylenol) 650 mg PO Q6H PRN PRN Reason: Pain (Mild 1-3) and fever Bupivacaine HCl (Sensorcaine-Mpf 0.25%) 10 ml .ROUTE .[facility] Stop: 10/22/17 02:01 Ephedrine Sulfate (Ephedrine Sulfate) 5 mg IVPUSH ASDIRECTED PRN PRN Reason: Hypotension Fentanyl (Sublimaze) 100 mcg EPIDUR Q3H PRN PRN Reason: Pain Last Admin: 10/21/17 20:51 Dose: 100 mcg Fentanyl/Bupivacaine HCl (Fentanyl/Bupivacaine/Ns 2 Mcg-0.125% 100 Ml) 100 ml EPIDUR ASDIRECTED MAMI Last Admin: 10/21/17 20:51 Dose: 100 ml Lactated Ringer's (Ringers, Lactated) 1,000 mls @ 100 mls/hr IV ASDIRECTED MAMI Last Infusion: 10/22/17 11:03 Dose: Infused Oxytocin/Lactated Ringer's (Pitocin In Lr 10 Units/1,000 Ml) 10 unit in 1,000 mls @ 100 mls/hr IV .CONTINUOUS MAMI Last Admin: 10/22/17 11:06 Dose: 100 mls/hr Oxytocin/Lactated Ringer's (Pitocin In Lr 10 Units/1,000 Ml) 10 unit in 1,000 mls @ 12 mls/hr IV TITRATE MAMI; Protocol Last Titration: 10/22/17 05:40 Dose: 250 mls/hr Measles/Mumps/Rubella Vaccine Live (M-M-R Ii Vaccine) 0.5 ml SUBCUT .ONCE ONE Stop: 10/22/17 05:52 Last Admin: 10/22/17 13:27 Dose: Not Given Misoprostol (Cytotec) 800 mcg PO ONETIME ONE Stop: 10/22/17 11:10 Last Admin: 10/22/17 13:28 Dose: Not Given Nalbuphine HCl (Nubain) 10 mg IVPUSH Q2H PRN PRN Reason: Pain (moderate 4-6) Ondansetron HCl (Zofran) 4 mg IVPUSH Q4H PRN PRN Reason: Nausea/Vomiting Ondansetron HCl (Zofran) 4 mg IVPUSH ONETIME PRN PRN Reason: Nausea/Vomiting Sodium Chloride (Saline Flush) 10 ml FLUSH ASDIRECTED PRN PRN Reason: Keep Vein Open
[2017-10-23] MEDS: Prenatal Multivitamin with Calcium/Folic Acid/Iron Tab PO SCH (11:01)
== END 2017-10-23 12:46 | disposition home or self-care (01) | DRG 774 ==
LOC: JD.OBCHECK 19:46 → JD.OB 19:50 → JD.OBCHECK 20:17 → JD.OB 20:18 → OBSVTOIN 10-22 05:25
PROVIDERS: ADMIT Obstetrics & Gynecology; ATTEND Obstetrics & Gynecology
PROC: 10E0XZZ Delivery of Products of Conception, External Approach (ICD-10-PCS; principal; 2017-10-22)
PROC: 00HU33Z Insertion of Infusion Device into Spinal Canal, Percutaneous Approach (ICD-10-PCS; 2017-10-22)
PROC: 3E0R3BZ Introduction of Anesthetic Agent into Spinal Canal, Percutaneous Approach (ICD-10-PCS; 2017-10-22)
PROC: 30233N1 Transfusion of Nonautologous Red Blood Cells into Peripheral Vein, Percutaneous Approach (ICD-10-PCS; 2017-10-22)
DX: O42.02 Full-term premature rupture of membranes, onset of labor within 24 hours of rupture (principal); O72.2 Delayed and secondary postpartum hemorrhage; O70.0 First degree perineal laceration during delivery; O69.81X0 Labor and delivery complicated by cord around neck, without compression, not applicable or unspecified; Z3A.38 38 weeks gestation of pregnancy; Z37.0 Single live birth
CPT/HCPCS: 36415; 51701; 51702; 59025; 59409; 85025; 85027; 85461; 86850; 86900; 86901; A9270-GY; J2590; J2790; J3010; J7120